=== PATIENT | female | born 1970 | race Hispanic/Latino ===

== ENCOUNTER 2018-04-02 12:38 | Emergency (ER) | payer OTHER ==
[2018-04-02] MEDS ORDERED: KETOROLAC TROMETHAMINE 60 MG/2 ML VIAL ONE (13:13)
== END 2018-04-02 14:03 | disposition home or self-care (01) ==
LOC: EDH 12:38
DX: R51 Headache (principal); M62.838 Other muscle spasm; Z98.890 Other specified postprocedural states; Z88.6 Allergy status to analgesic agent
CPT/HCPCS: 93005; 96372; 99283; J1885

== ENCOUNTER 2019-05-19 18:13 | Emergency (ER) | payer OTHER ==
[2019-05-19] MEDS ORDERED: ONDANSETRON HCL 4 MG/2 ML VIAL ONE (19:05)
[2019-05-19] MEDS ORDERED: FAMOTIDINE/PF 20 MG/2 ML VIAL IV ONE (19:06)
[2019-05-19] MEDS ORDERED: SODIUM CHLORIDE 0.9% 1000ML 1,000 ML IV ONE (19:07)
[2019-05-19 19:13] LABS: APPEARANCE,URINE Clear (CLEAR); BILIRUBIN,URINE Negative (NEGATIVE); COLOR,URINE Yellow (YELLOW); GLUCOSE, URINE (UA) Negative (NEGATIVE); KETONES,URINE 15 mg/dL (NEGATIVE); LEUKOCYTE ESTERASE ,URINE Trace (NEGATIVE); NITRATE,URINE Negative (NEGATIVE); OCCULT BLOOD,URINE Trace (NEGATIVE); PH,URINE 6.5 (5.0-8.0); PROTEIN,URINE Negative (NEGATIVE); UROBILINOGEN,URINE 0.2 mg/dL (0.2-1.0)
[2019-05-19 19:14] LABS: BASOPHILS % (AUTO) 0.8 % (0.0-5.0); EOSINOPHILS % (AUTO) 15.3 % (0.0-8.0); LYMPHOCYTES % (AUTO) 26.7 % (21.0-51.0); MEAN CORPUSCULAR HEMOGLOBIN 27.2 pg (27.0-33.0); MEAN CORPUSCULAR HGB CONC 32.4 g/dL (32.0-36.0); MONOCYTES % (AUTO) 7.9 % (3.0-13.0); NEUTROPHILS % (AUTO) 49.1 % (40.0-77.0); PLATELET COUNT (AUTO) 259 K/uL (130-400); RED CELL DISTRIBUTION WIDTH 13.4 % (11.0-15.5); WHITE BLOOD COUNT (AUTO) 8.3 K/uL (4.8-10.8)
[2019-05-19 19:21] LABS: HCG,QUAL RESULT NEGATIVE (NEGATIVE)
[2019-05-19 19:26] LABS: CREATININE 0.8 mg/dL (0.5-1.5); POTASSIUM 3.6 mmol/L (3.5-5.1)
[2019-05-19 19:28] LABS: BACTERIA,URINE Rare /HPF (None Seen); SQUAMOUS EPITHELIAL CELL,UR Few /HPF (0-2)
[2019-05-19 19:31] LABS: ALBUMIN 3.9 g/dL (3.5-5.0); BILIRUBIN,TOTAL 0.6 mg/dL (0.2-1.0); TOTAL PROTEIN, SERUM 8.1 g/dL (6.0-8.3)
[2019-05-19] MEDS ORDERED: KETOROLAC TROMETHAMINE 15MG/ML ONE (20:02)
== END 2019-05-19 21:14 | disposition home or self-care (01) ==
LOC: EDH 18:13
DX: K29.00 Acute gastritis without bleeding (principal); Z88.6 Allergy status to analgesic agent; Z98.890 Other specified postprocedural states
CPT/HCPCS: 36415; 76705; 80053; 81001; 81025; 83690; 85025; 96365; 96366; 96375; 99285; J1885; J2405; J3490; J7030

== ENCOUNTER 2025-03-01 20:41 | Emergency (ER) | payer BC, OTHER ==
[~2025-03-01] VITALS: Ht 157.5 cm; Wt 63.5 kg
[~2025-03-01 20:41] MED LIST: IBUP-1492 PO
--- NOTE | 2025-03-01 20:44 | NUR ---
UA CUP PROVIDED
[2025-03-01 20:58] LABS: NUCLEATED RED BLOOD CELLS 0.0 % (0.0-0.19); PLATELET COUNT (AUTO) 251.0 K/uL (130-400); RED BLOOD CELL COUNT(AUTO) 5.03 MIL/uL (4.00-5.50); RED CELL DISTRIBUTION WIDTH 14.1 % (11.0-15.5); WHITE BLOOD COUNT (AUTO) 6.3 K/uL (4.8-10.8)
--- NOTE | 2025-03-01 21:01 | NUR ---
UA COLLECTED AND SENT
[2025-03-01 21:09] LABS: CREATININE 0.7 mg/dL (0.5-1.0); GLOMERULAR FILTR. RATE CALC 103.0 mL/min (>90); GLUCOSE,RANDOM 119.0 mg/dL (70-105); SODIUM SERUM 136.0 mmol/L (136-145); UREA NITROGEN, BLOOD 9.0 mg/dL (7-18)
--- NOTE | 2025-03-01 21:27 | ERN ---
ED Note History of Present Illness Stated Complaint: DIARREAH Chief Complaint: Diarrhea Time Seen by MD: 20:43 Dictation: Patient is a 55-year-old female who presented to ER complaining of 4 days of nausea and diarrhea, stated she was seen by PCP and Bentyl was prescribed. Patient came today to the ER because she is still having diarrhea. Denies chest pain, no vomiting. Allergies: Coded Allergies: aspirin (Unverified Allergy, Unknown, 05/19/19) Uncoded Allergies: UNKNOWN ANTIBIOTIC (Allergy, Unknown, 03/01/25) Home Meds Active Scripts Metronidazole (Metronidazole) 500 Mg Tablet, 1 TAB PO BID for 3 Days, #6 TAB 0 Refills Prov:JOHN HIDALGO MD 03/01/25 Loperamide HCl (Imodium) 2 Mg Cap, 2 CAP PO Q6H for loose stool for 5 Days, #40 CAP 0 Refills Prov:JOHN HIDALGO MD 03/01/25 Acidophilus/Bulgaricus (Floranex Tablet) 1 Million Cell Tablet, 1 TAB PO TID for 5 Days, #15 TAB 0 Refills Prov:JOHN HIDALGO MD 03/01/25 Ibuprofen (Ibuprofen) 600 Mg Tablet, 600 MG PO Q6H PRN for PAIN, #30 TAB Prov:BRIELLE BUSTAMANTE MD 08/29/21 Past Medical History Past Medical History: High Cholesterol Surgical History: Social History: Negative, Lives with family History: Not Applicable : 3 Para: 3 Aborts: 0 Review of System Dictation NEGATIVE EXCEPT PER HPI Constitutional: Negative for fever,chills, and weight loss Eyes: Negative for injury, pain,redness, and discharge ENT: Negative for injury,pain or swelling Cardiovascular: denies chest pain, palpitations, and edema Respiratory: Negative for shortness of breath, cough, and wheezing, Abdomen/GI: Reports nausea and diarrhea Back: Negative for injury and pain : Negative for injury, bleeding and discharge MS/Extremity: Negative for injury and deformity Skin: Negative for rash, and discoloration Neuro: Negative for headache, weakness, numbness, tingling, and seizure Psych: Negative for suicide ideation, homicidal ideation, and hallucinations Initial Vital Sign VS Vital Signs Date Time Temp Pulse Resp B/P (MAP) Pulse Ox O2 Delivery O2 Flow Rate FiO2 03/01/25 20:43 98.8 90 20 113/88 98 Room Air 03/01/25 21:15 0 21 Physical Exam Dictation General: awake, alert, NAD Head/Face: Normocephalic, atraumatic Eyes: PERRL, EOMI, vision at baseline ENT: oral cavity clear, TMs clear, no signs of infection Neck: Trachea midline, supple, no nuchal rigidity Cardiovascular: RRR, normal S1/S2, No MRGs, no JVD Respiratory: CTAB, no respiratory distress, No rales or wheezes Abdomen: Soft , no tender Skin: Warm, dry, normal turgor, no rash MS/Extremity: Pulses equal, no cyanosis, neurovascular intact, FROM Neuro: COAx4, GCS 15, strength 5/5, CN 2-12 intact, normal cerebellar exam, normal gait, Psych: Normal behavior, mood, and affect normal Results (Laboratory/Radiology) Laboratory/Radiology Laboratory Tests Test 03/01/25 20:49 White Blood Count 6.3 K/uL (4.8-10.8) Red Blood Count 5.03 MIL/uL (4.00-5.50) Hemoglobin 13.6 g/dL (12.0-16.0) Hematocrit 42.2 % (36-48) Mean Corpuscular Volume 83.9 fL (79-99) Mean Corpuscular Hemoglobin 27.0 pg (27.0-33.0) Mean Corpuscular Hemoglobin Concent 32.2 g/dL (32.0-36.0) Red Cell Distribution Width 14.1 % (11.0-15.5) Platelet Count 251 K/uL (130-400) Mean Platelet Volume 10.1 fL (7.5-10.5) Nucleated Red Blood Cells 0.0 % (0.0-0.19) Sodium Level 136 mmol/L (136-145) Potassium Level 3.9 mmol/L (3.5-5.1) Chloride Level 101 mmol/L (101-111) Carbon Dioxide Level 27 mmol/L (21-32) Blood Urea Nitrogen 9 mg/dL (7-18) Creatinine 0.7 mg/dL (0.5-1.0) Glomerular Filtration Rate Calc 103 mL/min (>90) Random Glucose 119 mg/dL (70-105) H Total Calcium 9.2 mg/dL (8.5-10.1) ED Course ED Course Orders Procedure Category Date Status Time Cbc Without LAB 03/01/25 Complete Differential 20:46 Basic Metabolic Panel LAB 03/01/25 Complete 20:46 0.9%Nacl 1000ml (Ns PHA 03/01/25 In Process 1000ml) 21:00 Loperamide Hcl 2 Mg PHA 03/01/25 In Process Cap (Imodium) 21:00 Ondansetron 4mg Inj PHA 03/01/25 Complete (Zofran 4mg Inj) 21:30 Current Medications Medications (Trade) Dose Ordered Sig/Suzan Route PRN Reason Start Time Stop Time Status Last Admin Dose Admin Loperamide HCl (Imodium) 4 mg ONCE PO 03/01/25 21:00 03/01/25 23:30 03/01/25 21:29 Ondansetron HCl (zoFRAN 4MG INJ) 4 mg ONCE ONCE IVP 03/01/25 21:30 03/01/25 21:31 DC 03/01/25 21:30 Sodium Chloride 1,000 ml @ 0 mls/hr ONCE IV 03/01/25 21:00 03/02/25 20:59 03/01/25 21:30 Vital Signs Date Time Temp Pulse Resp B/P (MAP) Pulse Ox O2 Delivery O2 Flow Rate FiO2 03/01/25 21:15 99.1 80 18 116/79 98 Room Air* 0 21 03/01/25 20:43 98.8 90 20 113/88 98 Room Air Medical Decision Making MDM 55-year-old female who presented to come diarrhea x4 days. Diarrhea Dehydration Ordered CBC and BMP IV fluids for hydration Imodium ordered Zofran IV Patient was re-evaluate the bedside, doing better. No diarrhea so far. To be discharged home after IV fluids for hydration. DX & DISP Disposition: Discharge Departure Impression: Primary Impression: Diarrhea Additional Impressions: Dehydration, Nausea Condition: Stable Scripts Metronidazole (Metronidazole) 500 Mg Tablet 1 TAB PO BID for 3 Days, #6 TAB 0 Refills Prov: JOHN HIDALGO MD 03/01/25 Loperamide HCl (Imodium) 2 Mg Cap 2 CAP PO Q6H for loose stool for 5 Days, #40 CAP 0 Refills Prov: JOHN HIDALGO MD 03/01/25 Acidophilus/Bulgaricus (Floranex Tablet) 1 Million Cell Tablet 1 TAB PO TID for 5 Days, #15 TAB 0 Refills Prov: JOHN HIDALGO MD 03/01/25 Additional Instructions: RETURN TO ER FOR ANY ACUTE OR WORSENING SYMPTOMS. FOLLOW-UP IN 1-2 DAYS WITH PRIMARY PROVIDER FOR RECHECK OF TODAY'S SYMPTOMS. Referrals: SPENSER STEELE MD (PCP) Time of Disposition: 22:00 JOHN HIDALGO MD Mar 01, 2025 21:27
[2025-03-01] MEDS: LOPERAMIDE HCL 2 MG CAP PO SCH (21:29)
[2025-03-01] MEDS: 0.9%NACL 1000ML 1,000 ML IV SCH (21:30)
[2025-03-01] MEDS ORDERED: METR-172 PO (21:57)
[2025-03-01] MEDS ORDERED: LOPE2 PO (21:57)
[2025-03-01] MEDS ORDERED: ACID1TAB8 PO (21:57)
[2025-03-01 22:28] VITALS: BP 121/82; PULSE 75; RESP 18; TEMP 98.8; O2SAT 98
== END 2025-03-01 22:28 | disposition home or self-care (01) ==
LOC: EDH 20:41
DX: R19.7 Diarrhea, unspecified (principal); E86.0 Dehydration; R11.0 Nausea; E78.00 Pure hypercholesterolemia, unspecified; Z88.6 Allergy status to analgesic agent; Z88.1 Allergy status to other antibiotic agents; Z79.899 Other long term (current) drug therapy
CPT/HCPCS: 99284; 96374; 96361; 80048; 85027; 36415; J7030; J2405; 99283